=== PATIENT | male | born 1970 | race Caucasian/White ===

== ENCOUNTER 2017-08-14 18:08 | Emergency (ER) | payer BC ==
[~2017-08-14] VITALS: Ht 190.5 cm; Wt 90.7 kg
[~2017-08-14 18:08] MED LIST: IBUPROFEN600 MG ORAL; NKM; NORCO 10/3251 EA ORAL
[2017-08-14] MEDS ORDERED: KLONOPIN1 MG ORAL (18:18)
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
[2017-08-14] MEDS ORDERED: Bacitracin Oint UD TOPIC ONE (18:30)
[2017-08-14] MEDS ORDERED: Acetaminophen 500mg (ES) tab ORAL ONE (18:30)
[2017-08-14] MEDS ORDERED: Lidocaine 1% 10mg/ml/Epi 0.005mg/ml 30ml vial INJ ONE (18:30)
[2017-08-14] MEDS ORDERED: Tetanus/Diptheria/Pertussis Vaccine 0.5ml Syr IM ONE (18:30)
[2017-08-14 19:10] VITALS: BP 138/89
[2017-08-14] MEDS ORDERED: TYLENOL EXTRA500 MG ORAL (19:33)
[2017-08-14] MEDS ORDERED: BACITRACIN-P28.35 GM TP (19:33)
[2017-08-14 19:45] VITALS: BP 138/89
== END 2017-08-14 19:45 | disposition home or self-care (01) ==
LOC: EMR 18:30
DX: S01.81XA Laceration without foreign body of other part of head, initial encounter (principal); S50.812A Abrasion of left forearm, initial encounter; S50.12XA Contusion of left forearm, initial encounter; Y04.2XXA Assault by strike against or bumped into by another person, initial encounter; Y92.414 Local residential or business street as the place of occurrence of the external cause; Z23 Encounter for immunization
CPT/HCPCS: 90471; 90715; 99284